=== PATIENT | male | born 1965 | race Two or more races ===

== ENCOUNTER → 2017-05-23 | Outpatient (CLI) | payer OTHER ==
[~2017-05-23] VITALS: Ht 167.6 cm; Wt 89.7 kg
[~2017-05-23] MED LIST: CHLORHEXIDINE GLUCONATE 2 % 1 PACK (2 CLOTHS) TOPICAL PRN; DO NOT ADM ANY ANTICOAGULANT DRUGS PRN; FLUMAZENIL 0.5 MG/5 ML VIAL IV PRN; IBUP200C17 PO; INSULIN HUMAN REGULAR 1,000 UNITS/10 ML VIAL SQ PRN; LACTATED RINGER'S 1000 ML IV PRN; METOPROLOL TARTRATE 25 MG TAB PO PRN; NALOXONE HCL 0.4 MG/ML AMP IV PRN; POVIDONE IODINE 5% (ANTISEPSIS KIT) 4 APPLICATIONS EACH NARE PRN; PROPOFOL 200 MG/20 ML AMP IV PUSH ONE; SODIUM CHLORID 0.9% 500 ML IV PRN
[2017-05-23 13:00] VITALS: BP 108/64; PULSE 66; RESP 20; TEMP 96.8; O2SAT 96
--- NOTE | 2017-05-23 13:38 | EKG ---
Date Performed: 05/23/2017 Time Performed: 09:23:58 PTAGE: 51 years EKG: Sinus rhythm NORMAL ECG NO PREVIOUS TRACING DOCTOR: Hussein Delcid Interpretating Date/Time 05/23/2017 13:37:27
--- NOTE | 2017-05-23 15:35 | MR ---
cc: PAUL POON DATE: 05/23/2017 DATE OF : 1965 INDICATIONS FOR PROCEDURE: 1. Screening colonoscopy, average risk. 2. Evaluation of abnormal CT scan which revealed thickening of the sigmoid colon. 3. Patient has had left lower quadrant abdominal pain. PHOTOGRAPHS AND BIOPSIES: Photographs were taken, no biopsies. PREMEDICATIONS: Administered by Anesthesiology. MONITORING: Monitoring was accomplished with pulse oximeter, EKG and blood pressure monitor. PROCEDURE NOTE: After the informed consent was obtained and the procedure, risks and benefits were explained, including the risks of bleeding, sepsis, perforation and risks of anesthesia, the patient was placed in the left lateral position. The video colonoscope was inserted into the rectum. It was passed to the cecum in the usual fashion. The scope was then gradually withdrawn. The colonic mucosa throughout appeared to be grossly normal without any space occupying lesions or inflammatory changes. There was no evidence of diverticular disease. The left colon was carefully inspected and was found to be normal as well. In the rectum the scope was retroflexed and grade 2 internal hemorrhoids were noted without active bleeding. Colon extraction time was 6 minutes or greater. The patient tolerated the procedure well. No immediate complications were noted. IMPRESSION: Unremarkable colonoscopy to the cecum. Internal hemorrhoids were noted. PLAN: Recommend repeat colonoscopy in 10 years for average risk. Would recommend antispasmodic therapy if the patient has left lower quadrant pain, recurrent. Follow up in clinic as an outpatient. MD SOPHIA Boateng/ROJELIO /11:38 AM /3:24 PM
== END ==
LOC: HEND 09:08
PROVIDERS: ATTEND Internal Medicine Gastroenterology
DX: R93.5 Abnormal findings on diagnostic imaging of other abdominal regions, including retroperitoneum (principal); R10.32 Left lower quadrant pain; K64.8 Other hemorrhoids; Z01.810 Encounter for preprocedural cardiovascular examination
CPT/HCPCS: 00810; 45378; 93005; J7120